=== PATIENT | female | born 1970 | race Caucasian/White ===

== ENCOUNTER 2023-08-03 05:42 | Emergency (ER) | payer OTHER ==
[~2023-08-03] VITALS: Ht 165.1 cm; Wt 101.8 kg
[2023-08-03] MEDS ORDERED: CILOXAN 5 ML5 ML OP (06:20)
[2023-08-03 06:41] VITALS: BP 138/86; PULSE 90
== END 2023-08-03 06:45 | disposition home or self-care (01) ==
LOC: COL.ER 05:42
DX: H10.9 Unspecified conjunctivitis (principal)